=== PATIENT | male | born 1985 | race African-American/Black ===

== ENCOUNTER 2023-01-03 14:47 | Emergency (ER) | payer OTHER | END 2023-01-03 17:50 | disposition home or self-care (01) | LOC: JD.ED 14:47 | DX: S16.1XXA Strain of muscle, fascia and tendon at neck level, initial encounter (principal); M54.50 Low back pain, unspecified; V69.9XXA Occupant (driver) (passenger) of heavy transport vehicle injured in unspecified traffic accident, initial encounter; Y92.410 Unspecified street and highway as the place of occurrence of the external cause | CPT/HCPCS: 70450; 70450-26; 71045; 71045-26; 72100; 72100-26; 72125; 72125-26; 99283; 99284 ==